=== PATIENT | female | born 1990 | race Caucasian/White ===

== ENCOUNTER 2021-12-13 12:22 | Inpatient (IN) | payer OTHER ==
[~2021-12-13] VITALS: Ht 160 cm; Wt 57.6 kg
[2021-12-13 12:28] VITALS: BP 133/98
[2021-12-13 15:32] LABS: BASO # 0.1 10*3/uL (0.0-0.1); BASO % 0.4 % (0.0-1.0); HEMATOCRIT 56.2 % (37.0-47.0); LYMPH # 2.2 10*3/uL (1.3-4.4); LYMPH % 14.4 % (27.0-41.0); MEAN CELL VOLUME 87.5 fl (81.0-99.0); MEAN CORPUSCULAR HGB 29.9 pg (27.0-31.0); MEAN CORPUSCULAR HGB CONC 34.2 g/dl (33.0-37.0); MEAN PLATELET VOLUME 9.9 fl (9.6-12.3); MONO # 1.5 10*3/uL (0.1-1.0); MONO % 9.8 % (3.0-9.0); NEUT # 11.5 10*3/uL (2.3-7.9); NEUT % 75.1 % (47.0-73.0); PLATELET COUNT AUTOMATED 349 10*3/uL (130-400); RED BLOOD COUNT 6.42 10*6/uL (4.10-5.10); WHITE BLOOD COUNT 15.3 10*3/uL (4.8-10.8)
[2021-12-13 15:33] LABS: BILIRUBIN 2+ (Negative); BLOOD 2+ (Negative); CLARITY Turbid (Clear); COLOR Dark Yellow (Yellow); GLUCOSE Negative (Negative); KETONE 1+ (Negative); LEUKO ESTERASE Trace (Negative); NITRITE Negative (Negative); SPECIFIC GRAVITY >= 1.030 (1.001-1.030)
[2021-12-13 15:44] LABS: BACTERIA 4+; EPITHELIAL CELLS TNTC
[2021-12-13 15:45] LABS: HYALINE CAST TNTC
[2021-12-13 15:51] LABS: ALKALINE PHOSPHATASE 103 U/L (45-117); BETA-HCG, QUANT < 1.0 mIU/mL (1-3); BUN 36 mg/dl (7-24); CHLORIDE 93 mmol/L (98-107); CREATININE 1.27 mg/dL (0.55-1.02); LIPASE 322 U/L (73-393); POTASSIUM 3.4 mmol/L (3.5-5.1); SGOT/AST 15 IU/L (3-35); SGPT/ALT 14 U/L (12-78); SODIUM 133 mmol/L (136-145); TOTAL PROTEIN 10.3 gm/dL (6.4-8.2)
[2021-12-13 19:01] VITALS: BP 118/68
[2021-12-13 19:31] VITALS: BP 127/82
[2021-12-13 20:51] LABS: INTERNATIONAL NORM RATIO 1.1 (2.0-3.5)
[2021-12-13 20:59] LABS: BUN 27 mg/dl (7-24); CHLORIDE 104 mmol/L (98-107); CREATININE 0.98 mg/dL (0.55-1.02); POTASSIUM 3.7 mmol/L (3.5-5.1); SGOT/AST 14 IU/L (3-35); SGPT/ALT 13 U/L (12-78); SODIUM 139 mmol/L (136-145); TOTAL PROTEIN 8.5 gm/dL (6.4-8.2)
[2021-12-13 21:00] LABS: ALKALINE PHOSPHATASE 81 U/L (45-117); ETHYL ALCOHOL < 3.0 mg/dl (<3)
[2021-12-13 21:03] LABS: BETA-HCG, QUANT < 1.0 mIU/mL (1-3)
[2021-12-13 21:12] VITALS: BP 122/52
[2021-12-13 22:29] LABS: BILIRUBIN Negative (Negative); BLOOD Trace-Lysed (Negative); CLARITY Clear (Clear); COLOR Yellow (Yellow); GLUCOSE Negative (Negative); KETONE 3+ (Negative); LEUKO ESTERASE Trace (Negative); NITRITE Negative (Negative); PH 7.5 (4.5-8.0); SPECIFIC GRAVITY >= 1.030 (1.001-1.030)
[2021-12-13 22:52] LABS: EPITHELIAL CELLS 16-20
[2021-12-13 22:53] LABS: RBC 16-20 rbc/hpf (0-2)
[2021-12-14 01:30] VITALS: BP 107/60
[2021-12-14 05:31] VITALS: BP 104/72
[2021-12-14 06:15] LABS: BASO # 0.1 10*3/uL (0.0-0.1); BASO % 0.6 % (0.0-1.0); EOS % 0.1 % (1.0-4.0); HEMATOCRIT 46.4 % (37.0-47.0); LYMPH # 2.8 10*3/uL (1.3-4.4); LYMPH % 24.2 % (27.0-41.0); MEAN CELL VOLUME 89.4 fl (81.0-99.0); MEAN CORPUSCULAR HGB 30.1 pg (27.0-31.0); MEAN CORPUSCULAR HGB CONC 33.6 g/dl (33.0-37.0); MEAN PLATELET VOLUME 9.9 fl (9.6-12.3); MONO # 1.2 10*3/uL (0.1-1.0); NEUT # 7.5 10*3/uL (2.3-7.9); PLATELET COUNT AUTOMATED 277 10*3/uL (130-400); RED BLOOD COUNT 5.19 10*6/uL (4.10-5.10); WHITE BLOOD COUNT 11.8 10*3/uL (4.8-10.8)
[2021-12-14 06:29] LABS: ALKALINE PHOSPHATASE 79 U/L (45-117); BUN 22 mg/dl (7-24); CHLORIDE 106 mmol/L (98-107); CREATININE 0.88 mg/dL (0.55-1.02); POTASSIUM 3.8 mmol/L (3.5-5.1); SGOT/AST 17 IU/L (3-35); SGPT/ALT 17 U/L (12-78); SODIUM 138 mmol/L (136-145); TOTAL PROTEIN 8.1 gm/dL (6.4-8.2)
[2021-12-14 07:17] VITALS: BP 116/69
[2021-12-14 14:30] VITALS: BP 126/64
[2021-12-14 16:00] VITALS: BP 122/85
[2021-12-14 20:00] VITALS: BP 123/81
[2021-12-14 20:43] LABS: URINE AMPHETAMINES < 1000 (1000ng/ml); URINE BARBITURATES < 200 (200ng/ml); URINE BENZODIAZEPINES < 200 (200ng/ml); URINE CANNABINOIDS (THC) > 50 (50ng/ml); URINE COCAINE < 300 (300ng/ml); URINE METHADONE < 300 (300ng/ml); URINE OPIATES < 300 (300ng/ml)
[2021-12-14 20:44] LABS: URINE PHENCYCLIDINE < 25 (25ng/ml)
[2021-12-15] VITALS: BP 115/66
[2021-12-15 06:26] LABS: BASO # 0.1 10*3/uL (0.0-0.1); BASO % 0.9 % (0.0-1.0); BUN 18 mg/dl (7-24); CHLORIDE 109 mmol/L (98-107); EOS % 0.3 % (1.0-4.0); HEMATOCRIT 43.9 % (37.0-47.0); LYMPH % 30.5 % (27.0-41.0); MEAN CELL VOLUME 88.3 fl (81.0-99.0); MEAN CORPUSCULAR HGB 29.8 pg (27.0-31.0); MEAN CORPUSCULAR HGB CONC 33.7 g/dl (33.0-37.0); MEAN PLATELET VOLUME 10.4 fl (9.6-12.3); MONO # 0.9 10*3/uL (0.1-1.0); MONO % 8.7 % (3.0-9.0); NEUT # 5.8 10*3/uL (2.3-7.9); NEUT % 59.2 % (47.0-73.0); PLATELET COUNT AUTOMATED 266 10*3/uL (130-400); POTASSIUM 3.7 mmol/L (3.5-5.1); RED BLOOD COUNT 4.97 10*6/uL (4.10-5.10); RED CELL DISTRI WIDTH 11.9 % (0-14.5); SODIUM 140 mmol/L (136-145); WHITE BLOOD COUNT 9.8 10*3/uL (4.8-10.8)
[2021-12-15 08:00] VITALS: BP 122/61
[2021-12-15] MEDS ORDERED: PHENERGAN25 M3 PO (12:00)
[2021-12-15] MEDS ORDERED: ONDANSETRON4 MG SL (12:00)
== END 2021-12-15 16:15 | disposition home or self-care (01) | DRG 773 ==
LOC: ED 12:22 → EDHOLD 18:07 → 5E 18:07
PROVIDERS: Emergency Medicine; Family Medicine; Internal Medicine; ADMIT Internal Medicine; ATTEND Internal Medicine
DX: F11.13 Opioid abuse with withdrawal (principal); N17.0 Acute kidney failure with tubular necrosis; E86.0 Dehydration; E87.2 Acidosis; R65.10 Systemic inflammatory response syndrome (SIRS) of non-infectious origin without acute organ dysfunction; F15.10 Other stimulant abuse, uncomplicated; F17.210 Nicotine dependence, cigarettes, uncomplicated; D72.821 Monocytosis (symptomatic); Z88.0 Allergy status to penicillin; Z98.51 Tubal ligation status; Z90.49 Acquired absence of other specified parts of digestive tract; Z78.9 Other specified health status